=== PATIENT | male | born 1975 | race African-American/Black ===

== ENCOUNTER 2016-08-16 23:18 | Emergency (ER) | payer MEDICARE ==
[~2016-08-16] VITALS: Ht 172.7 cm; Wt 82.0 kg
[~2016-08-16 23:18] MED LIST: ACETAMIN325 MG PO; ACIPHEX20 MG PO; AMLODIPINE10 MG PO; APRESOLINE25 MG/TAB PO; BENTYL10 MG PO; CHLORASEPTIC SO1 LOZ PO; CIPROFLOXACN500 MG PO; CLONIDINE0.1 MG PO; CLONIDINE0.2 MG; CLONIDINE0.2 MG OR; CLONIDINE0.2 MG PO; DOXAZOSIN4 MG PO; DULCOLAX SS100 MG PO; GLIPIZIDE10 M1; GLIPIZIDE10 M1 PO; GLIPIZIDE5 M1 PO; HUMALOG100 MG/ML SC; HYDRALAZINE25 MG PO; LASIX40 MG PO; LEVEMIR FLEXPEN SC; LEVEMIR SC; LEVEMIR1000 UNITS SC; LISINOPRIL10 MG; LISINOPRIL10 MG PO; LISINOPRIL20 MG; LISINOPRIL20 MG OR; LISINOPRIL20 MG PO; LISINOPRIL40 MG PO; LOPRESSOR 550 MG/TAB PO; LOPRESSOR50 MG PO; LORTAB 10-325 M1 TAB PO; LORTAB5 OR; LORTAB5 PO; LOSARTAN POT100 MG PO; LOSARTAN POT50 MG PO; METOCLOPRAM10 MG; METOCLOPRAM5 MG PO; METRONIDAZOL500 MG PO; MINOCYCLINE100 MG OR; NEXIUM40 M1 PO; NO HOME MEDS; NORCO1 TA1 PO; NORVASC10 M1 PO; NORVASC2.5 MG PO; NOVOLIN 70/30 SC; NOVOLOG FLEXPEN SC; NOVOLOG SC; OMEPRAZOLE20 MG PO; ONDANSETRON4 MG; ONDANSETRON4 MG PO; PANTOPRAZOLE SO40 M1 PO; PEPCID20 MG PO; PHENERGAN25 MG/TAB PO; PRAVASTATIN10 MG PO; PRAVASTATIN20 MG PO; PRILOSEC40 MG OR; PROCARDIA XL60 MG PO; PROCARDIA10 MG PO; PROMETHAZINE HC25 MG PO; PROMETHAZINE25 MG OR; PROTONIX40 MG PO; ULTRAM50 M1 PO; ZOFRAN ODT4 MG OR; ZOFRAN ODT4 MG PO; ZOFRAN2 MG/M1 IV; ZOFRAN4 M1 OR; ZOFRAN4 MG OR; ZOFRAN4 MG/TAB PO; [UNRECOGNIZED DRUG - REMARK] SC
[2016-08-17 03:46] LABS: HEMATOCRIT 38.3 % (39.0-50.0); HEMOGLOBIN 12.5 g/dl (14.0-18.0); IMMATURE GRANULOCYTES 0.4 % (0.0-1.0); MEAN CELL VOLUME 90.8 fL CALC (80.0-100.0); MEAN CORPUSCULAR HGB 29.6 pG CALC (26.0-32.0); MEAN CORPUSCULAR HGB CONC 32.6 g/L CALC (32.0-36.0); NEUT# 9.54 thou/uL (1.82-7.42); RED BLOOD COUNT 4.22 mill/uL (4.70-6.10); RED CELL DISTRI WIDTH 15.5 % (11.5-15.5)
[2016-08-17 04:14] LABS: ALBUMIN 4.6 g/dL (3.2-5.0); BILIRUBIN, TOTAL 0.6 mg/dL (0.0-1.4); CALCIUM 9.9 mg/dL (8.4-10.2); TOTAL PROTEIN 7.8 g/dL (6.3-8.2)
[2016-08-17 04:52] LABS: CREATININE 13.8 mg/dL (0.7-1.3); POTASSIUM 5.2 mmol/l (3.5-5.1)
[2016-08-17] MEDS ORDERED: CATAPRES0.2 MG PO (07:00)
[2016-08-17 07:14] VITALS: BP 171/89
== END 2016-08-17 06:59 | disposition left against medical advice (07) ==
LOC: ED 23:18
PROVIDERS: Emergency Medicine
DX: I16.1 Hypertensive emergency (principal); I12.0 Hypertensive chronic kidney disease with stage 5 chronic kidney disease or end stage renal disease; E11.22 Type 2 diabetes mellitus with diabetic chronic kidney disease; E11.43 Type 2 diabetes mellitus with diabetic autonomic (poly)neuropathy; K31.84 Gastroparesis; N18.6 End stage renal disease; E66.01 Morbid (severe) obesity due to excess calories; M19.90 Unspecified osteoarthritis, unspecified site; K21.9 Gastro-esophageal reflux disease without esophagitis; R11.10 Vomiting, unspecified; R10.13 Epigastric pain; Z99.2 Dependence on renal dialysis
CPT/HCPCS: S0164

== ENCOUNTER 2016-11-14 04:06 | Emergency (ER) | payer MEDICARE, MEDICAID ==
[~2016-11-14] VITALS: Ht 172.7 cm; Wt 100.0 kg
[~2016-11-14 04:06] MED LIST changes: +CATAPRES0.2 MG PO
[2016-11-14 05:01] LABS: HEMATOCRIT 33.8 % (39.0-50.0); HEMOGLOBIN 10.7 g/dl (14.0-18.0); IMMATURE GRANULOCYTES 0.3 % (0.0-1.0); MEAN CELL VOLUME 96.3 fL CALC (80.0-100.0); MEAN CORPUSCULAR HGB 30.5 pG CALC (26.0-32.0); MEAN CORPUSCULAR HGB CONC 31.7 g/L CALC (32.0-36.0); NEUT# 6.07 thou/uL (1.82-7.42); RED BLOOD COUNT 3.51 mill/uL (4.70-6.10); RED CELL DISTRI WIDTH 15.5 % (11.5-15.5)
[2016-11-14 05:10] LABS: ALBUMIN 4.4 g/dL (3.2-5.0); BILIRUBIN, TOTAL 0.7 mg/dL (0.0-1.4); POTASSIUM 4.6 mmol/l (3.5-5.1); TOTAL PROTEIN 7.2 g/dL (6.3-8.2)
[2016-11-14 05:19] LABS: CREATININE 10.7 mg/dL (0.7-1.3)
[2016-11-14 06:17] VITALS: BP 189/97
== END 2016-11-14 06:17 | disposition home or self-care (01) ==
LOC: ED 04:06
PROVIDERS: Emergency Medicine
DX: E87.70 Fluid overload, unspecified (principal); I12.0 Hypertensive chronic kidney disease with stage 5 chronic kidney disease or end stage renal disease; N18.6 End stage renal disease; Z99.2 Dependence on renal dialysis; R06.02 Shortness of breath; R94.31 Abnormal electrocardiogram [ECG] [EKG]

== ENCOUNTER 2016-12-31 20:45 | Emergency (ER) | payer MEDICARE, MEDICAID ==
[~2016-12-31] VITALS: Ht 172.7 cm; Wt 80.0 kg
[2016-12-31 22:13] LABS: ALBUMIN 4.4 g/dL (3.2-5.0); BILIRUBIN, TOTAL 0.9 mg/dL (0.0-1.4); POTASSIUM 3.8 mmol/l (3.5-5.1); TOTAL PROTEIN 6.7 g/dL (6.3-8.2)
[2016-12-31 22:15] LABS: CREATININE 6.8 mg/dL (0.7-1.3)
[2016-12-31 22:24] LABS: HEMATOCRIT 36.3 % (39.0-50.0); HEMOGLOBIN 11.7 g/dl (14.0-18.0); IMMATURE GRANULOCYTES 0.4 % (0.0-1.0); MEAN CELL VOLUME 92.8 fL CALC (80.0-100.0); MEAN CORPUSCULAR HGB 29.9 pG CALC (26.0-32.0); MEAN CORPUSCULAR HGB CONC 32.2 g/L CALC (32.0-36.0); NEUT# 6.65 thou/uL (1.82-7.42); RED BLOOD COUNT 3.91 mill/uL (4.70-6.10); RED CELL DISTRI WIDTH 14.4 % (11.5-15.5)
[2017-01-01] MEDS ORDERED: ZOFRAN ODT4 MG PO (01:42)
[2017-01-01] MEDS ORDERED: PREVACID30 M2 PO (01:42)
[2017-01-01 01:46] VITALS: BP 175/90
== END 2017-01-01 01:55 | disposition home or self-care (01) ==
LOC: ED 20:45
PROVIDERS: Emergency Medicine
DX: R11.2 Nausea with vomiting, unspecified (principal); N18.6 End stage renal disease; E11.22 Type 2 diabetes mellitus with diabetic chronic kidney disease; K31.84 Gastroparesis; E11.43 Type 2 diabetes mellitus with diabetic autonomic (poly)neuropathy; I12.0 Hypertensive chronic kidney disease with stage 5 chronic kidney disease or end stage renal disease; E66.01 Morbid (severe) obesity due to excess calories; M19.90 Unspecified osteoarthritis, unspecified site; K21.9 Gastro-esophageal reflux disease without esophagitis; Z99.2 Dependence on renal dialysis
CPT/HCPCS: S0164

== ENCOUNTER 2017-02-13 10:08 | Emergency (ER) | payer MEDICARE ==
[~2017-02-13] VITALS: Ht 172.7 cm; Wt 79.5 kg
[~2017-02-13 10:08] MED LIST changes: +PREVACID30 M2 PO
[2017-02-13 11:09] LABS: HEMATOCRIT 35.5 % (39.0-50.0); HEMOGLOBIN 11.5 g/dl (14.0-18.0); IMMATURE GRANULOCYTES 0.4 % (0.0-1.0); MEAN CELL VOLUME 89.9 fL CALC (80.0-100.0); MEAN CORPUSCULAR HGB 29.1 pG CALC (26.0-32.0); MEAN CORPUSCULAR HGB CONC 32.4 g/L CALC (32.0-36.0); NEUT# 6.59 thou/uL (1.82-7.42); RED BLOOD COUNT 3.95 mill/uL (4.70-6.10); RED CELL DISTRI WIDTH 15.5 % (11.5-15.5)
[2017-02-13 11:17] LABS: ALBUMIN 4.2 g/dL (3.2-5.0); BILIRUBIN, TOTAL 1.1 mg/dL (0.0-1.4); CALCIUM 9.7 mg/dL (8.4-10.2); POTASSIUM 3.1 mmol/l (3.5-5.1)
[2017-02-13] MEDS ORDERED: FAMOTIDINE20 M1 PO (11:18)
[2017-02-13] MEDS ORDERED: PANTOPRAZOLE SO40 MG PO (11:19)
[2017-02-13 11:27] LABS: CREATININE 7.8 mg/dL (0.7-1.3)
[2017-02-13] MEDS ORDERED: PROTONIX40 MG PO (16:59)
[2017-02-13] MEDS ORDERED: REGLAN10 MG PO (16:59)
[2017-02-13] MEDS ORDERED: ZOFRAN4 MG/TAB PO (16:59)
[2017-02-13 17:03] VITALS: BP 180/93
== END 2017-02-13 17:16 | disposition home or self-care (01) ==
LOC: ED 10:08
PROVIDERS: Emergency Medicine
DX: R10.13 Epigastric pain (principal); E11.43 Type 2 diabetes mellitus with diabetic autonomic (poly)neuropathy; K31.84 Gastroparesis; I12.0 Hypertensive chronic kidney disease with stage 5 chronic kidney disease or end stage renal disease; E11.22 Type 2 diabetes mellitus with diabetic chronic kidney disease; N18.6 End stage renal disease; Z99.2 Dependence on renal dialysis; E66.01 Morbid (severe) obesity due to excess calories; M19.90 Unspecified osteoarthritis, unspecified site; K21.9 Gastro-esophageal reflux disease without esophagitis; E11.65 Type 2 diabetes mellitus with hyperglycemia

== ENCOUNTER 2017-03-08 19:45 | Emergency (ER) | payer MEDICARE ==
[~2017-03-08] VITALS: Ht 172.7 cm; Wt 73.0 kg
[~2017-03-08 19:45] MED LIST changes: +FAMOTIDINE20 M1 PO; +PANTOPRAZOLE SO40 MG PO; +REGLAN10 MG PO
[2017-03-08 20:54] LABS: HEMATOCRIT 40.9 % (39.0-50.0); HEMOGLOBIN 12.6 g/dl (14.0-18.0); IMMATURE GRANULOCYTES 0.4 % (0.0-1.0); MEAN CELL VOLUME 91.9 fL CALC (80.0-100.0); MEAN CORPUSCULAR HGB 28.3 pG CALC (26.0-32.0); MEAN CORPUSCULAR HGB CONC 30.8 g/L CALC (32.0-36.0); NEUT# 7.45 thou/uL (1.82-7.42); RED BLOOD COUNT 4.45 mill/uL (4.70-6.10); RED CELL DISTRI WIDTH 15.9 % (11.5-15.5)
[2017-03-08 21:17] LABS: ALBUMIN 4.5 g/dL (3.2-5.0); BILIRUBIN, TOTAL 0.8 mg/dL (0.0-1.4); CALCIUM 9.9 mg/dL (8.4-10.2); POTASSIUM 4.2 mmol/l (3.5-5.1); TOTAL PROTEIN 6.9 g/dL (6.3-8.2)
[2017-03-08 21:21] LABS: CREATININE 6.8 mg/dL (0.7-1.3)
[2017-03-09] MEDS ORDERED: ZPAK PO ×3 (01:09→01:30)
[2017-03-09] MEDS ORDERED: ZOFRAN ODT4 MG PO ×2 (01:09→01:28)
[2017-03-09 01:20] VITALS: BP 196/103
== END 2017-03-09 01:20 | disposition home or self-care (01) ==
LOC: ED 19:45
PROVIDERS: Emergency Medicine
DX: I12.0 Hypertensive chronic kidney disease with stage 5 chronic kidney disease or end stage renal disease (principal); N18.6 End stage renal disease; Z99.2 Dependence on renal dialysis; R10.84 Generalized abdominal pain; R11.2 Nausea with vomiting, unspecified; K31.84 Gastroparesis

== ENCOUNTER 2017-04-05 16:26 | Emergency (ER) | payer MEDICARE ==
[~2017-04-05] VITALS: Ht 172.7 cm; Wt 74.0 kg
[~2017-04-05 16:26] MED LIST changes: +ZPAK PO
[2017-04-05 17:50] LABS: HEMATOCRIT 42.1 % (39.0-50.0); HEMOGLOBIN 12.8 g/dl (14.0-18.0); IMMATURE GRANULOCYTES 0.3 % (0.0-1.0); MEAN CELL VOLUME 92.1 fL CALC (80.0-100.0); MEAN CORPUSCULAR HGB CONC 30.4 g/L CALC (32.0-36.0); NEUT# 7.86 thou/uL (1.82-7.42); RED BLOOD COUNT 4.57 mill/uL (4.70-6.10); RED CELL DISTRI WIDTH 16.2 % (11.5-15.5)
[2017-04-05 18:04] LABS: ALBUMIN 4.2 g/dL (3.2-5.0); CALCIUM 10.1 mg/dL (8.4-10.2); TOTAL PROTEIN 6.8 g/dL (6.3-8.2)
[2017-04-05 18:17] LABS: CREATININE 7.1 mg/dL (0.7-1.3)
[2017-04-05] MEDS ORDERED: ZOFRAN ODT4 MG PO (19:57)
[2017-04-05] MEDS ORDERED: ULTRAM50 M1 PO (19:57)
[2017-04-05 20:54] VITALS: BP 178/82
== END 2017-04-05 21:00 | disposition home or self-care (01) ==
LOC: ED 16:26
PROVIDERS: Family Medicine
DX: R10.84 Generalized abdominal pain (principal); R11.2 Nausea with vomiting, unspecified; I12.0 Hypertensive chronic kidney disease with stage 5 chronic kidney disease or end stage renal disease; E11.22 Type 2 diabetes mellitus with diabetic chronic kidney disease; N18.6 End stage renal disease; Z99.2 Dependence on renal dialysis; E11.43 Type 2 diabetes mellitus with diabetic autonomic (poly)neuropathy; K31.84 Gastroparesis; E66.01 Morbid (severe) obesity due to excess calories; K21.9 Gastro-esophageal reflux disease without esophagitis; M19.90 Unspecified osteoarthritis, unspecified site

== ENCOUNTER 2017-04-14 01:22 | Emergency (ER) | payer MEDICARE ==
[~2017-04-14] VITALS: Ht 172.7 cm; Wt 63.6 kg
[2017-04-14 02:24] LABS: HEMATOCRIT 39.6 % (39.0-50.0); HEMOGLOBIN 12.8 g/dl (14.0-18.0); IMMATURE GRANULOCYTES 0.5 % (0.0-1.0); MEAN CELL VOLUME 88.2 fL CALC (80.0-100.0); MEAN CORPUSCULAR HGB 28.5 pG CALC (26.0-32.0); MEAN CORPUSCULAR HGB CONC 32.3 g/L CALC (32.0-36.0); NEUT# 8.35 thou/uL (1.82-7.42); RED BLOOD COUNT 4.49 mill/uL (4.70-6.10); RED CELL DISTRI WIDTH 16.1 % (11.5-15.5)
[2017-04-14 02:41] LABS: ALBUMIN 4.6 g/dL (3.2-5.0); CALCIUM 10.5 mg/dL (8.4-10.2); POTASSIUM 4.6 mmol/l (3.5-5.1)
[2017-04-14 02:55] LABS: CREATININE 13.6 mg/dL (0.7-1.3)
[2017-04-14 05:18] VITALS: BP 199/99
== END 2017-04-14 05:18 | disposition short-term general hospital (02) ==
LOC: ED 01:22
PROVIDERS: Emergency Medicine
DX: R10.13 Epigastric pain (principal); I16.1 Hypertensive emergency; R94.8 Abnormal results of function studies of other organs and systems; E11.22 Type 2 diabetes mellitus with diabetic chronic kidney disease; I12.0 Hypertensive chronic kidney disease with stage 5 chronic kidney disease or end stage renal disease; N18.6 End stage renal disease; Z99.2 Dependence on renal dialysis; E11.43 Type 2 diabetes mellitus with diabetic autonomic (poly)neuropathy; K31.84 Gastroparesis; E66.01 Morbid (severe) obesity due to excess calories; K21.9 Gastro-esophageal reflux disease without esophagitis; M19.90 Unspecified osteoarthritis, unspecified site; R94.31 Abnormal electrocardiogram [ECG] [EKG]

== ENCOUNTER 2017-06-07 16:47 | Emergency (ER) | payer MEDICARE ==
[~2017-06-07] VITALS: Ht 172.7 cm; Wt 74.4 kg
[2017-06-07 17:48] LABS: HEMATOCRIT 32.9 % (39.0-50.0); HEMOGLOBIN 10.4 g/dl (14.0-18.0); IMMATURE GRANULOCYTES 0.3 % (0.0-1.0); MEAN CELL VOLUME 90.9 fL CALC (80.0-100.0); MEAN CORPUSCULAR HGB 28.7 pG CALC (26.0-32.0); MEAN CORPUSCULAR HGB CONC 31.6 g/L CALC (32.0-36.0); NEUT# 11.14 thou/uL (1.82-7.42); RED BLOOD COUNT 3.62 mill/uL (4.70-6.10); RED CELL DISTRI WIDTH 17.4 % (11.5-15.5)
[2017-06-07 18:25] LABS: ALBUMIN 4.5 g/dL (3.2-5.0); BILIRUBIN, TOTAL 0.7 mg/dL (0.0-1.4); CALCIUM 10.6 mg/dL (8.4-10.2); TOTAL PROTEIN 6.8 g/dL (6.3-8.2)
[2017-06-07 18:43] LABS: CREATININE 8.4 mg/dL (0.7-1.3)
[2017-06-07 20:58] VITALS: BP 192/93
== END 2017-06-07 20:45 | disposition home or self-care (01) ==
LOC: ED 16:47
PROVIDERS: Family Medicine
DX: R10.84 Generalized abdominal pain (principal); I12.0 Hypertensive chronic kidney disease with stage 5 chronic kidney disease or end stage renal disease; N18.6 End stage renal disease; Z99.2 Dependence on renal dialysis

== ENCOUNTER 2017-06-22 10:33 | Emergency (ER) | payer MEDICARE ==
[~2017-06-22] VITALS: Ht 172.7 cm; Wt 74.0 kg
[2017-06-22 11:55] LABS: HEMATOCRIT 34.8 % (39.0-50.0); IMMATURE GRANULOCYTES 0.2 % (0.0-1.0); MEAN CELL VOLUME 91.6 fL CALC (80.0-100.0); MEAN CORPUSCULAR HGB 28.9 pG CALC (26.0-32.0); MEAN CORPUSCULAR HGB CONC 31.6 g/L CALC (32.0-36.0); NEUT# 6.95 thou/uL (1.82-7.42); RED BLOOD COUNT 3.8 mill/uL (4.70-6.10); RED CELL DISTRI WIDTH 16.5 % (11.5-15.5)
[2017-06-22 12:01] LABS: ALBUMIN 4.5 g/dL (3.2-5.0); BILIRUBIN, TOTAL 0.7 mg/dL (0.0-1.4); CALCIUM 11.1 mg/dL (8.4-10.2); POTASSIUM 4.6 mmol/l (3.5-5.1); TOTAL PROTEIN 6.7 g/dL (6.3-8.2)
[2017-06-22] MEDS ORDERED: LOSARTAN POT25 MG PO (12:07)
[2017-06-22] MEDS ORDERED: LABETALOL100 MG PO (12:07)
[2017-06-22] MEDS ORDERED: ONDANSETRON4 MG PO (16:02)
[2017-06-22] MEDS ORDERED: NORCO1 TA1 PO (16:02)
[2017-06-22] MEDS ORDERED: CLONIDINE0.2 MG PO (16:02)
[2017-06-22 16:17] VITALS: BP 199/103
== END 2017-06-22 16:17 | disposition home or self-care (01) ==
LOC: ED 10:33
PROVIDERS: Emergency Medicine
DX: G89.29 Other chronic pain (principal); R10.11 Right upper quadrant pain; F11.20 Opioid dependence, uncomplicated; Z99.2 Dependence on renal dialysis; N18.6 End stage renal disease; K31.84 Gastroparesis

== ENCOUNTER 2017-07-17 03:43 | Emergency (ER) | payer MEDICARE ==
[~2017-07-17] VITALS: Ht 172.7 cm; Wt 77.4 kg
[~2017-07-17 03:43] MED LIST changes: +LABETALOL100 MG PO; +LOSARTAN POT25 MG PO
[2017-07-17 05:10] LABS: HEMATOCRIT 29.6 % (39.0-50.0); HEMOGLOBIN 9.4 g/dl (14.0-18.0); IMMATURE GRANULOCYTES 0.3 % (0.0-1.0); MEAN CELL VOLUME 93.7 fL CALC (80.0-100.0); MEAN CORPUSCULAR HGB 29.7 pG CALC (26.0-32.0); MEAN CORPUSCULAR HGB CONC 31.8 g/L CALC (32.0-36.0); NEUT# 9.17 thou/uL (1.82-7.42); RED BLOOD COUNT 3.16 mill/uL (4.70-6.10); RED CELL DISTRI WIDTH 15.9 % (11.5-15.5)
[2017-07-17 05:22] LABS: ALBUMIN 4.6 g/dL (3.2-5.0); BILIRUBIN, TOTAL 0.7 mg/dL (0.0-1.4); POTASSIUM 4.8 mmol/l (3.5-5.1); TOTAL PROTEIN 6.8 g/dL (6.3-8.2)
[2017-07-17 06:05] VITALS: BP 199/96
== END 2017-07-17 06:15 | disposition home or self-care (01) ==
LOC: ED 03:43
PROVIDERS: Emergency Medicine
DX: R10.33 Periumbilical pain (principal); R11.2 Nausea with vomiting, unspecified; I12.0 Hypertensive chronic kidney disease with stage 5 chronic kidney disease or end stage renal disease; N18.6 End stage renal disease; Z99.2 Dependence on renal dialysis

== ENCOUNTER 2017-09-10 04:05 | Emergency (ER) | payer MEDICARE ==
[~2017-09-10] VITALS: Ht 172.7 cm; Wt 74.4 kg
[~2017-09-10 04:05] MED LIST changes: +CREON3000 UNIT PO; +LINZESS290 MCG; +METOCLOPRAMIDE10 M1; +PRAMIPEXOLE D0.25 MG PO; +RENVELA800 MG PO; +SENSIPAR30 MG PO
[2017-09-10 05:47] LABS: HEMATOCRIT 34.8 % (39.0-50.0); IMMATURE GRANULOCYTES 0.5 % (0.0-1.0); MEAN CELL VOLUME 92.6 fL CALC (80.0-100.0); MEAN CORPUSCULAR HGB 30.6 pG CALC (26.0-32.0); NEUT# 8.81 thou/uL (1.82-7.42); RED BLOOD COUNT 3.76 mill/uL (4.70-6.10); RED CELL DISTRI WIDTH 15.1 % (11.5-15.5)
[2017-09-10 05:48] LABS: HEMOGLOBIN 11.5 g/dl (14.0-18.0)
[2017-09-10 05:57] LABS: ALBUMIN 4.4 g/dL (3.2-5.0); BILIRUBIN, TOTAL 0.7 mg/dL (0.0-1.4); TOTAL PROTEIN 7.4 g/dL (6.3-8.2)
[2017-09-10 05:59] LABS: CREATININE 8.7 mg/dL (0.7-1.3); POTASSIUM 5.2 mmol/l (3.5-5.1)
[2017-09-10] MEDS ORDERED: ULTRAM50 M1 PO (06:48)
[2017-09-10] MEDS ORDERED: ZOFRAN ODT4 MG PO (06:48)
[2017-09-10 06:55] VITALS: BP 182/92
== END 2017-09-10 07:05 | disposition home or self-care (01) ==
LOC: ED 04:05
PROVIDERS: Emergency Medicine
DX: R10.33 Periumbilical pain (principal); I12.0 Hypertensive chronic kidney disease with stage 5 chronic kidney disease or end stage renal disease; N18.6 End stage renal disease; Z99.2 Dependence on renal dialysis

== ENCOUNTER 2017-11-09 23:40 | Emergency (ER) | payer MEDICARE ==
[~2017-11-09] VITALS: Ht 172.7 cm; Wt 78.0 kg
[2017-11-10 00:32] LABS: HEMATOCRIT 30.5 % (39.0-50.0); HEMOGLOBIN 9.6 g/dl (14.0-18.0); IMMATURE GRANULOCYTES 0.4 % (0.0-1.0); MEAN CORPUSCULAR HGB 29.3 pG CALC (26.0-32.0); MEAN CORPUSCULAR HGB CONC 31.5 g/L CALC (32.0-36.0); NEUT# 7.06 thou/uL (1.82-7.42); RED BLOOD COUNT 3.28 mill/uL (4.70-6.10); RED CELL DISTRI WIDTH 15.9 % (11.5-15.5)
[2017-11-10 00:55] LABS: ALBUMIN 4.4 g/dL (3.2-5.0); BILIRUBIN, TOTAL 0.6 mg/dL (0.0-1.4); TOTAL PROTEIN 7.4 g/dL (6.3-8.2)
[2017-11-10 01:02] LABS: CREATININE 9.1 mg/dL (0.7-1.3); POTASSIUM 5.8 mmol/l (3.5-5.1)
[2017-11-10 05:17] VITALS: BP 206/110
== END 2017-11-10 05:22 | disposition short-term general hospital (02) ==
LOC: ED 23:40
PROVIDERS: Emergency Medicine
DX: K85.90 Acute pancreatitis without necrosis or infection, unspecified (principal); N18.6 End stage renal disease; Z99.2 Dependence on renal dialysis; I16.0 Hypertensive urgency; E87.5 Hyperkalemia; R89.7 Abnormal histological findings in specimens from other organs, systems and tissues; R94.31 Abnormal electrocardiogram [ECG] [EKG]; Z96.89 Presence of other specified functional implants
CPT/HCPCS: S0164

== ENCOUNTER 2017-12-07 01:06 | Emergency (ER) | payer MEDICARE ==
[~2017-12-07] VITALS: Ht 172.7 cm; Wt 74.8 kg
[2017-12-07 02:06] LABS: HEMATOCRIT 35.2 % (39.0-50.0); HEMOGLOBIN 10.9 g/dl (14.0-18.0); IMMATURE GRANULOCYTES 0.3 % (0.0-1.0); MEAN CELL VOLUME 95.7 fL CALC (80.0-100.0); MEAN CORPUSCULAR HGB 29.6 pG CALC (26.0-32.0); NEUT# 8.16 thou/uL (1.82-7.42); RED BLOOD COUNT 3.68 mill/uL (4.70-6.10); RED CELL DISTRI WIDTH 16.4 % (11.5-15.5)
[2017-12-07 02:25] LABS: ALBUMIN 5.2 g/dL (3.2-5.0); BILIRUBIN, TOTAL 0.8 mg/dL (0.0-1.4); POTASSIUM 5.1 mmol/l (3.5-5.1)
[2017-12-07 02:27] LABS: CREATININE 7.7 mg/dL (0.7-1.3); TOTAL PROTEIN 8.9 g/dL (6.3-8.2)
[2017-12-07 10:24] VITALS: BP 237/127
== END 2017-12-07 10:24 | disposition short-term general hospital (02) ==
LOC: ED 01:06
PROVIDERS: Emergency Medicine
DX: K85.90 Acute pancreatitis without necrosis or infection, unspecified (principal); I16.0 Hypertensive urgency; I12.0 Hypertensive chronic kidney disease with stage 5 chronic kidney disease or end stage renal disease; K31.84 Gastroparesis; N18.6 End stage renal disease; Z99.2 Dependence on renal dialysis; R00.0 Tachycardia, unspecified

== ENCOUNTER 2017-12-14 08:35 | Emergency (ER) | payer MEDICARE ==
[~2017-12-14] VITALS: Ht 172.7 cm; Wt 74.0 kg
[2017-12-14 09:39] LABS: HEMATOCRIT 30.6 % (39.0-50.0); HEMOGLOBIN 9.6 g/dl (14.0-18.0); IMMATURE GRANULOCYTES 0.3 % (0.0-5.0); MEAN CELL VOLUME 94.7 fL CALC (80.0-100.0); MEAN CORPUSCULAR HGB 29.7 pG CALC (26.0-32.0); MEAN CORPUSCULAR HGB CONC 31.4 g/L CALC (32.0-36.0); NEUT# 9.38 thou/uL (1.82-7.42); RED BLOOD COUNT 3.23 mill/uL (4.70-6.10); RED CELL DISTRI WIDTH 15.1 % (11.5-15.5)
[2017-12-14 09:59] LABS: ALBUMIN 4.4 g/dL (3.2-5.0); BILIRUBIN, TOTAL 0.8 mg/dL (0.0-1.4); POTASSIUM 4.7 mmol/l (3.5-5.1)
[2017-12-14 10:01] LABS: CREATININE 8.1 mg/dL (0.7-1.3); TOTAL PROTEIN 7.1 g/dL (6.3-8.2)
[2017-12-14 11:45] VITALS: BP 188/92
== END 2017-12-14 11:45 | disposition short-term general hospital (02) ==
LOC: ED 08:35
PROVIDERS: Emergency Medicine
DX: K85.90 Acute pancreatitis without necrosis or infection, unspecified (principal); I12.0 Hypertensive chronic kidney disease with stage 5 chronic kidney disease or end stage renal disease; N18.6 End stage renal disease; Z99.2 Dependence on renal dialysis; R11.2 Nausea with vomiting, unspecified; R10.11 Right upper quadrant pain
CPT/HCPCS: S0164

== ENCOUNTER 2018-01-04 18:55 | Emergency (ER) | payer MEDICARE ==
[~2018-01-04] VITALS: Ht 172.7 cm; Wt 75.0 kg
[2018-01-04 20:28] LABS: HEMATOCRIT 29.4 % (39.0-50.0); HEMOGLOBIN 9.4 g/dl (14.0-18.0); IMMATURE GRANULOCYTES 0.4 % (0.0-5.0); MEAN CELL VOLUME 92.2 fL CALC (80.0-100.0); MEAN CORPUSCULAR HGB 29.5 pG CALC (26.0-32.0); NEUT# 9.53 thou/uL (1.82-7.42); RED BLOOD COUNT 3.19 mill/uL (4.70-6.10); RED CELL DISTRI WIDTH 16.3 % (11.5-15.5)
[2018-01-04 20:35] LABS: ALBUMIN 4.5 g/dL (3.2-5.0); BILIRUBIN, TOTAL 0.7 mg/dL (0.0-1.4); TOTAL PROTEIN 7.5 g/dL (6.3-8.2)
[2018-01-04 20:43] LABS: CREATININE 9.6 mg/dL (0.7-1.3)
[2018-01-05 01:03] VITALS: BP 189/90
== END 2018-01-05 01:06 | disposition short-term general hospital (02) ==
LOC: ED 18:55
PROVIDERS: Emergency Medicine
DX: I16.1 Hypertensive emergency (principal); I12.0 Hypertensive chronic kidney disease with stage 5 chronic kidney disease or end stage renal disease; N18.6 End stage renal disease; R10.12 Left upper quadrant pain; R10.11 Right upper quadrant pain; K86.1 Other chronic pancreatitis; Z99.2 Dependence on renal dialysis

== ENCOUNTER 2018-02-05 13:40 | Inpatient (IN) | payer MEDICARE ==
[2018-02-05] VITALS (9 sets, daily range): BP systolic 153–203; BP diastolic 77–98
[~2018-02-05] VITALS: Ht 172.7 cm; Wt 74.0 kg
--- NOTE | 2018-02-05 13:45 | NUR ---
PT AMBULATES TO TX ROOM WITH STABLE GAIT. REPORTS VOMITING X 6 TODAY SINCE DIALYSIS.
--- NOTE | 2018-02-05 14:46 | NUR ---
SEVERAL IV ATTEMPTS UNSUCCESFUL, LIJ ESTABLSHED AND LABS OBTAINED. PT MEDICATED ORDERED.
[2018-02-05 14:58] LABS: HEMATOCRIT 33.1 % (39.0-50.0); HEMOGLOBIN 10.5 g/dl (14.0-18.0); IMMATURE GRANULOCYTES 0.2 % (0.0-5.0); MEAN CELL VOLUME 93.2 fL CALC (80.0-100.0); MEAN CORPUSCULAR HGB 29.6 pG CALC (26.0-32.0); MEAN CORPUSCULAR HGB CONC 31.7 g/L CALC (32.0-36.0); NEUT# 9.15 thou/uL (1.82-7.42); RED BLOOD COUNT 3.55 mill/uL (4.70-6.10); RED CELL DISTRI WIDTH 16.7 % (11.5-15.5)
--- NOTE | 2018-02-05 15:01 | NUR ---
DR MERLOS AT BEDSIDE FOR EVAL
[2018-02-05 15:15] LABS: ALBUMIN 4.8 g/dL (3.2-5.0); TOTAL PROTEIN 7.8 g/dL (6.3-8.2)
[2018-02-05 15:22] LABS: CREATININE 8.1 mg/dL (0.7-1.3); POTASSIUM 5.4 mmol/l (3.5-5.1)
--- NOTE | 2018-02-05 15:54 | NUR ---
PT CONTINUES TO BE HYPERTENSIVE AFTER LEBETALOL IVP. DR MERLOS ADVISED, ORDER RECEIVED FOR HYDRALAZINE IVP.
--- NOTE | 2018-02-05 16:00 | NUR ---
PT RESTING ON STRETCHER, SNORING BUT EASILY AROUSEABLE. PT STATES PAIN IS 1/10.
--- NOTE | 2018-02-05 16:13 | NUR ---
DR MERLOS AT BEDSIDE TO DISCUSS RESULTS AND PLAN
--- NOTE | 2018-02-05 16:27 | NUR ---
NICARDIPINE GTT INITIATED ORDERED, RBVO DR MERLSO. INFUSING AT 5MG/HR FOR [facility] BP 180/[address] MERLOS
--- NOTE | 2018-02-05 17:15 | NUR ---
BP DOCUMENTED, CARDENE CONTINUES AT 5MG/HR. PT STATES PAIN IS STARTING TO INCREASE AGAIN, DR MERLOS ADVISED.
--- NOTE | 2018-02-05 17:44 | NUR ---
REPORT TO DIONNE REYNAGA. PT MEDICATED ORDERED FOR PAIN.
--- NOTE | 2018-02-05 17:50 | NUR ---
PT ARRIVED TO ICU, BED 6, BY STRETCHER WITH TELE & IV CARDENE. PT ABLE TO STAND TO TRANSFER FROM STRETCHER TO BED. PT STATES TOOK HOME HIS BELONGINGS FROM ED.
--- NOTE | 2018-02-05 18:06 | NUR ---
PT UNABLE TO STAY AWAKE TO ANSWER ADMISSION QUESTIONS. DR HODGES NOTIFIED. VERBAL ORDER TO "WAIT IT OUT" DUE TO PTS HYPERTENSION. STERNAL RUB NEEDED TO WAKE PT UP.
--- NOTE | 2018-02-05 18:34 | NUR ---
PT C/O 01/02 MID/UPPER ABD PAIN WITH N/V x10 SINCE DIALYSIS STARTED TODAY. PT STATES HE DID NOT COMPLETE DIALYSIS TODAY DUE TO ABD PAIN & N/V. DESCRIBES PAIN "CRAMPING". PT ADMITS TO SMOKING RECREATIONAL MARIJUANA. PT DOES NOT KNOW HIS HOME MEDICATIONS. CONSULT PLACED WITH PHARMACY. PT ARRIVED ON CARDENE DRIP AT 5MG/HR STARTED AT 1625- ER DR SET TARGET PARAMETER OF 180/110. PT ONLY AWAKEN BY STERNAL RUB. BED ALARM SET. EYES SLUGGISH @2. PULSES STRONG, POOR CAP REFILL. BREATHING EVEN/UNLABORED, LUNG SOUNDS CLEAR. ABD SOFT/TENDER, ACTIVE BS. SCD'S PLACED ON PT. PT STATES HE PRODUCES A LITTLE URINE, DENIES PAIN WITH URINATION. PT ON FALL PRECAUTIONS, CALLBELL W/IN REACH. MAG CITRATE ORDERS BUT WILL HOLD FOR PM NURSE AFTER PT IS MORE AWAKE.
--- NOTE | 2018-02-05 19:20 | NUR ---
PT IN BED WITH EYES CLOSED, RESPONDS TO VERBAL STIMULI. ALERT TO SELF AND , HAS TO BE ORIENTED TO DATE. CARDENE GTT TO LEFT EJ AT 5MG/HR. B/P 213/100, HR 108. ENCOURAGED TO DRINK MAG CITRATE PER ORDERS, DRINKING ABOUT 50%, WILL CONTINUE TO ENCOURAGE TO DRINK MORE. C/O ABDOMINAL PAIN WAS MEDICATED WITH DILAUDID 2MG IV AT 1742, DISCUSED WITH PT DILAUDID AVAILABLE TO HIM PER DR'S ORDER EVERY 4HRS, PT VOICES UNDERSTANDING. STONG THRILL TO TWO FISTULAS IN LEFT ARM. SCD'S TO BILAT LOWER EXTREMITIES. BED ALARM APPLIED DUE TO PT BEING IMPULSIVE. CALL LIGHT IN REACH, WILL CONTINUE TO MONITOR.
--- NOTE | 2018-02-05 20:57 | NUR ---
CARDENE GTT DC'D AND LABETALOL GTT STARTED AT 0.5MG/MIN PER DR'S ORDERS, WILL CONTINUE TO MONITOR.
--- NOTE | 2018-02-05 21:40 | NUR ---
C/O CRAMPING ABDOMINAL PAIN 01/02, DILAUDID 1MG IV ADMINISTERED PER JUL. LABETALOL RATE INCREASED TO 1MG/MIN AT THIS TIME. WILL CONTINUE TO MONITOR.
--- NOTE | 2018-02-05 23:33 | NUR ---
RESTING ON RIGHT SIDE WITH EYES CLOSED, RESPIRATIONS EVEN AND UNLBORED. B/P 150/83, HR 93, LABETALOL GTT INFUSING TO LEJ AT 1MG/MIN. CALL LIGHT IN REACH.
[2018-02-06] VITALS (39 sets, daily range): BP systolic 50–281; BP diastolic 37–157
--- NOTE | 2018-02-06 02:00 | NUR ---
LABETALOL GTT DECREASED TO 0.5MG/HR DUE TO B/P 155/77, HR 86.
--- NOTE | 2018-02-06 02:15 | NUR ---
C/O ABDOMINAL PAIN 01/02, DILAUDID 1MG IV ADMINISTERED PER JUL.
--- NOTE | 2018-02-06 04:20 | NUR ---
RESTING IN SEMIFOWLERS WITH EYES CLOSED, RESPIRATIONS EVEN AND UNLABORED. B/P 173/91, HR 85. LABETALOL GTT INFUSING AT 0.5MG/MIN. CALL LIGHT IN REACH.
--- NOTE | 2018-02-06 06:12 | NUR ---
B/P 186/97, HR 88, LABETALOL GTT INCREASED TO 1MG/MIN, INFUSING TO KAILA WITH NO COMPLICATIONS. PT SNORING. CALL LIGHT IN REACH.
--- NOTE | 2018-02-06 07:15 | NUR ---
PT SITTING UP ON EDGE OF BED ROCKING HOLDING STOMACH COMPLAINS OF NAUSEA AND CRAMPING, WILL MEDICATE ORDERED; PT ALSO THEN ASKS FOR A GATORADE, EDUCATED REGARDING APPROPRIATE FLUID INTAKE WITH REGARDS TO HIS KIDNEY FAILURE; OFFERED ALTERNATIVE FLUIDS AND PT AGREES; AM ASSESSMENT COMPLETED; SEE INTERVENTIONS; LUNGS CLEAR; SKIN WARM AND DRY; PT HAS 2 SHUNTS IN LEFT ARM, LAEFT AC SHUNT NON FUNCTIONING PER PT; UPPER ARM SHUNT WITH GOOD BRUIT & THRILL; SKIN DRY BUT INTACT NO BREAKDOWN NOTED; ABD SOFT BS HYPOACTIVE; SAFETY MEASURES REINFORCED; WILL CONTINUE TO MONITOR.
--- NOTE | 2018-02-06 08:16 | NUR ---
PT RESTING IN BED; OCCASIONALLY OOB TO BSC; NO STOOLS AT THIS TIME; AM MEAL AT BEDSIDE WITH NO INTAKE NOTED; PT REQUEST LEAVING IT AT THIS TIME. DOZING BUT REPSONDS TO VERBAL STIMULI.
--- NOTE | 2018-02-06 08:46 | NUR ---
INTO SEE PATIENT, PLAN CARE DISCUSSED, INCLUDING POTENTIAL D/C LATER TODAY TO MAKE DIALYSIS APPT IN AM. ALSO NEED FOR LACTULOSE RELEATED TO FECAL IMPACTION
[2018-02-06] MEDS ORDERED: ADULT ASPIRIN E81 MG PO (08:53)
[2018-02-06] MEDS ORDERED: PHOSLO667 M1 PO (08:53)
[2018-02-06] MEDS ORDERED: CARVEDILOL3.125 MG PO (08:54)
[2018-02-06] MEDS ORDERED: HYDRALAZINE25 MG PO (08:55)
[2018-02-06] MEDS ORDERED: CLONIDINE0.2 MG PO (08:55)
[2018-02-06] MEDS ORDERED: LABETALOL200 MG PO (08:56)
[2018-02-06] MEDS ORDERED: LINZESS145 MCG PO (08:56)
[2018-02-06] MEDS ORDERED: LISINOPRIL40 MG PO (08:57)
[2018-02-06] MEDS ORDERED: METOCLOPRAMIDE10 MG PO (08:58)
[2018-02-06] MEDS ORDERED: NIFEDIPINE60 MG PO (08:59)
[2018-02-06] MEDS ORDERED: NORCO1 TA1 PO (09:01)
[2018-02-06] MEDS ORDERED: ONDANSETRON HCL4 MG PO (09:02)
[2018-02-06] MEDS ORDERED: PANTOPRAZOLE SO40 MG PO (09:02)
[2018-02-06] MEDS ORDERED: PEG PO (09:04)
[2018-02-06] MEDS ORDERED: PRAMIPEXOLE0.25 MG PO (09:05)
[2018-02-06] MEDS ORDERED: PRAVASTATIN10 MG PO (09:05)
--- NOTE | 2018-02-06 09:30 | NUR ---
SCD'S OFF AT THIS TIME PER PT REQUEST, ASKING FOR PAIN MEDICATION EDUCATED REGARDING PAIN MEDICATION SCHEDULE; VERBALIZES UNDERSTANDING.
[2018-02-06 10:05] LABS: HEMATOCRIT 31.7 % (39.0-50.0); HEMOGLOBIN 9.9 g/dl (14.0-18.0); IMMATURE GRANULOCYTES 0.5 % (0.0-5.0); MEAN CELL VOLUME 93.8 fL CALC (80.0-100.0); MEAN CORPUSCULAR HGB 29.3 pG CALC (26.0-32.0); MEAN CORPUSCULAR HGB CONC 31.2 g/L CALC (32.0-36.0); NEUT# 6.84 thou/uL (1.82-7.42); RED BLOOD COUNT 3.38 mill/uL (4.70-6.10)
--- NOTE | 2018-02-06 10:24 | NUR ---
BP REMAINS ELEVATED; RESTARTED HOME MEDICATIONS ORDERED. WILL CONTINUE TO MONITOR.
[2018-02-06 11:00] LABS: CREATININE 9.8 mg/dL (0.7-1.3); POTASSIUM 6.2 mmol/l (3.5-5.1)
--- NOTE | 2018-02-06 11:40 | NUR ---
pt medicated with kaexylate for elevated potassium and medicated for complaints of pain, will hold next dose of lactulose per verbal order continues to have no results form previous medications (i.e. mag citrate, lactulose etc..) will continue to monitor.
--- NOTE | 2018-02-06 12:22 | NUR ---
pt up on bedside commode after visiotr at bedside for short period of time still no po intake of food this shift, monitor fluid intake, will continue to monitor.
--- NOTE | 2018-02-06 12:49 | NUR ---
pt oob to bsc, continent of small loose stool, self aki care provided, will continue to monitor.
--- NOTE | 2018-02-06 13:24 | NUR ---
pt's mother in to visit patient
--- NOTE | 2018-02-06 13:38 | NUR ---
pt up to bsc again continent of small loose polo bm, self aki care provided, will continue to monitor.
--- NOTE | 2018-02-06 13:54 | NUR ---
pt up to bsc again, called in for update.
--- NOTE | 2018-02-06 14:15 | NUR ---
PT OOB TO BSC AGAIN, CONTINENT OF LOOSE STEPHEN STOOL SMALL AMOUNT, SELF DOLORES CARE PROVIDED, CALL RAY WITHIN REACH
--- NOTE | 2018-02-06 16:00 | NUR ---
PT OOB TO BSC INTERMITTENLTY, AT BEDSIDE ASSISTING WITH ADL CARE BATH ETC...LINENS CHANGED BY NETWORK SECURITY ENGINEER, CALL RAY WITHIN REACH
--- NOTE | 2018-02-06 16:58 | NUR ---
PT MEDICATED FOR COMPLAINTS OF PAIN AND NAUSEA, LAB AT BEDSIDE EARLEIR TO DRAW POTASSIUM, AWAITING RESULTS.
--- NOTE | 2018-02-06 17:33 | NUR ---
SET UP ASSIST PROVIDED FOR PM MEAL, SPOUSE REMAINS AT BEDSIDE
--- NOTE | 2018-02-06 18:10 | NUR ---
AWARE OF CONTINUED HYPERTENSION, AND K OF 5.6, NEW ORDERS REC'D
--- NOTE | 2018-02-06 19:10 | NUR ---
sitting on side of bed. no acute distress. pvc monitor shows sinus rhythm. #20 dennis saline lock. cardene began as ordered. sips po fluids taken. admits "i pee very little." fall precautions cont.
--- NOTE | 2018-02-06 21:20 | NUR ---
refused lactalose. admits "i'll poop on myself."
--- NOTE | 2018-02-06 21:20 | NUR ---
dilaudid 1mg ivp given for c/o "7" pain. does not appear in pain.
--- NOTE | 2018-02-06 21:30 | NUR ---
dr porter called. orders rec'd to d/c @ 0600 02-07-18 for dialysis @ 0677.
--- NOTE | 2018-02-06 22:10 | NUR ---
eyes closed. no distress.
[2018-02-07] VITALS (19 sets, daily range): BP systolic 144–172; BP diastolic 70–94
--- NOTE | 2018-02-07 00:01 | NUR ---
awake freq. has asked 3x for more pain med since last administration. no apparent distress.
--- NOTE | 2018-02-07 01:45 | NUR ---
awake. requested pain med. rates pain as "7". doesn't appear in pain. dilaudid 1mg & zofran 4mg ivp given.
--- NOTE | 2018-02-07 02:00 | NUR ---
eyes closed. no distress. cardiac rehabilitation specialist shows sinus rhythm.
--- NOTE | 2018-02-07 04:00 | NUR ---
awake. no acute distress. alarm security or surveillance monitor shows sinus rhythm.
--- NOTE | 2018-02-07 04:15 | NUR ---
[facility] called this advertising copy writer. asked if pt was going to dialysis this a.m. Instructed of dr porter's orders to d/c @ 0600 for 0630 dialysis.
--- NOTE | 2018-02-07 05:00 | NUR ---
sitting on side of bed. no acute distress. applejuice given per request.
--- NOTE | 2018-02-07 05:20 | NUR ---
Discharge instructions given. Patient verbalizes understanding of same. Discharged in stable condition via Wheelchair to Home with spouse. All belongings sent with pt. iv d/c'd with cath intact.
== END 2018-02-07 05:20 | disposition home or self-care (01) | DRG 304 ==
LOC: ED 13:40 → ED-I 17:00 → ED 17:08 → ICU 17:09
PROVIDERS: Family Medicine; Internal Medicine Nephrology; ADMIT Internal Medicine; ATTEND Internal Medicine
DX: I16.1 Hypertensive emergency (principal); N18.6 End stage renal disease; N25.81 Secondary hyperparathyroidism of renal origin; I12.0 Hypertensive chronic kidney disease with stage 5 chronic kidney disease or end stage renal disease; Z99.2 Dependence on renal dialysis; D64.9 Anemia, unspecified; E87.5 Hyperkalemia; E11.22 Type 2 diabetes mellitus with diabetic chronic kidney disease; E11.43 Type 2 diabetes mellitus with diabetic autonomic (poly)neuropathy; K31.84 Gastroparesis; E83.39 Other disorders of phosphorus metabolism; K21.9 Gastro-esophageal reflux disease without esophagitis; K59.09 Other constipation

== ENCOUNTER 2018-03-29 16:01 | Inpatient (IN) | payer MEDICARE ==
[~2018-03-29] VITALS: Ht 172.7 cm; Wt 74.0 kg
[~2018-03-29 16:01] MED LIST changes: +ADULT ASPIRIN E81 MG PO; +CARVEDILOL3.125 MG PO; +LABETALOL200 MG PO; +LINZESS145 MCG PO; +METOCLOPRAMIDE10 MG PO; +NIFEDIPINE60 MG PO; +ONDANSETRON HCL4 MG PO; +PEG PO; +PHOSLO667 M1 PO; +PRAMIPEXOLE0.25 MG PO
--- NOTE | 2018-03-29 16:05 | NUR ---
PT STATES N/V FOR PAST WEEK. PT HAD DIALYSIS LAST YESTERDAY. PT IS AOX4. PT STATES HAVING DIARRHEA. PT STATES VOMITING 30 MINS AGO, VOMITED 10 TIMES IN PAST 24 HRS. PT DENIES ANY C/P,OR SOB.
--- NOTE | 2018-03-29 16:14 | NUR ---
PT TO ROOM AMBLATORY, REFUSING W/C
[2018-03-29 16:26] LABS: HEMATOCRIT 30.2 % (39.0-50.0); HEMOGLOBIN 9.3 g/dl (14.0-18.0); IMMATURE GRANULOCYTES 0.4 % (0.0-5.0); MEAN CELL VOLUME 95.9 fL CALC (80.0-100.0); MEAN CORPUSCULAR HGB 29.5 pG CALC (26.0-32.0); MEAN CORPUSCULAR HGB CONC 30.8 g/L CALC (32.0-36.0); NEUT# 7.99 thou/uL (1.82-7.42); RED BLOOD COUNT 3.15 mill/uL (4.70-6.10); RED CELL DISTRI WIDTH 16.6 % (11.5-15.5)
[2018-03-29 17:06] LABS: ALBUMIN 4.2 g/dL (3.2-5.0); BILIRUBIN, TOTAL 0.6 mg/dL (0.0-1.4); TOTAL PROTEIN 6.9 g/dL (6.3-8.2)
[2018-03-29 17:19] LABS: CREATININE 7.8 mg/dL (0.7-1.3); POTASSIUM 4.2 mmol/l (3.5-5.1)
--- NOTE | 2018-03-29 17:30 | NUR ---
PT RESTING ON STRECHER, EASILY AROUSEABLE. SISTER AT BEDSIDE.
--- NOTE | 2018-03-29 17:59 | NUR ---
SBAR PRINTED TO FLOOR
--- NOTE | 2018-03-29 18:23 | NUR ---
REPORT CALLED TO ICU- CAN RN ACCEPTED PT
--- NOTE | 2018-03-29 18:42 | NUR ---
Admission Note Report Given to: ERIC Transported by: Wheelchair X Stretcher Transported with: X Nurse Transporter X Patent IV O2 X [employer] Manager TRANSPORTED TO ICU 7 WITHOUT INCIDENT
--- NOTE | 2018-03-29 18:45 | NUR ---
PT ARRIVES TO ICU-7 FROM ER, ALERT AND ORIENTED X 3. PT AMBULATORY WITH STANDBY ASSIST TO BED. CARDENE SET UP AT 5 MG/HR. NO VOMITING OR REPORT OF ABDOMINAL PAIN UPON ARRIVAL. REPORT TO CLAYTON AT SHIFT CHANGE.
[2018-03-29 19:00] VITALS: BP 190/97
--- NOTE | 2018-03-29 19:30 | NUR ---
RESTING IN BED WITH EYES CLOSED, RESPIRATIONS EVEN AND UNLABORED ON RA. B/P 169/71, HR 96. CARDENE GTT INFUSING TO LEJ AT 5MG/HR. WILL CONTINUE TO MONITOR.
[2018-03-29 20:00] VITALS: BP 211/91
--- NOTE | 2018-03-29 20:05 | NUR ---
PT SITTING ON SIDE OF BED CALLING OUT FOR ASSISTANCE, C/O NAUSEA, ZOFRAN 4MG IV ADMINISTERED, WITH PROTONIX IV PER DR'S ORDERS. LORTA 5/325MG PO ALSO PROVIDED FOR C/O ABDOMINAL PAIN 01/02.
--- NOTE | 2018-03-29 20:15 | NUR ---
FREDDYENE GTT INCREASED TO 10MG/HR DUE TO B/P 200/94, HR 104. WILL CONTINUE TO MONITOR.
[2018-03-29 21:00] VITALS: BP 168/83
[2018-03-29 22:00] VITALS: BP 159/68
--- NOTE | 2018-03-29 22:41 | NUR ---
PT C/O ABDOMINAL PAIN 03/04, NOTIFIED AND NEW ORDER RECEIVED FOR DILAUDID 4MG IV Q6H PRN FOR PAIN. MEDICATED AT THIS TIME. WILL CONTINUE TO MONITOR.
[2018-03-29 23:00] VITALS: BP 156/73
[2018-03-30] VITALS (17 sets, daily range): BP systolic 140–185; BP diastolic 69–96
--- NOTE | 2018-03-30 | NUR ---
PT C/O ABDOMIMAL PAIN 11/02, REQUESTING PAIN MEDICATION, DISCUSSED WITH PT TIMES DILAUDID AND LORTAB ARE AVAILABLE TO HIM, VOICES UNDERSTANDING, BACK MASSAGE PROVIDED. CALL LIGHT IN REACH.
--- NOTE | 2018-03-30 03:08 | NUR ---
LORTAB 5/325 PO PROVIDED FOR C/O ABDOMINAL PAIN AT THIS TIME. PT IS STANDING ON SIDE OF BED, USING URINAL, VOIDING LESS 25CC OF CLEAR YELLOW URINE. BATH OFFERED AND REFUSED AT THIS TIME.
--- NOTE | 2018-03-30 05:01 | NUR ---
CALLING OUT FOR NURSE, C/O ABDOMINAL PAIN 03/04, DILAUDID 4MG IV ADMINISTERED. CARDENE GTT INFUSING TO LEFT EJ AT 10MG/HR, B/P 142/74, HR 88. AT 0519 C/O NAUSEA, ZOFRAN 4MG IV ADMINISTERED.
--- NOTE | 2018-03-30 05:59 | NUR ---
PT STANDING ON SIDE OF BED SCRATCHING ARMS AND LEGS, WHEN ASKED WHAT IS WRONG PT CLEARS HIS THROAT AND PACES FROM SIDE TO SIDE. CARDENE GTT CONTINUE TO INFUSE WITH NO COMPLICAITONS. B/P 153/73, HEART RATE 103. THEN SITTING ON SIDE OF BED.
--- NOTE | 2018-03-30 08:25 | NUR ---
PT RESTS IN THE BED IN NO ACUTE DISTRESS. HE DOES NOT ALWAYS ANSWER QUESTIONS ASKED. IV SITE TO LEFT EXTERNAL JUGULAR WAS REDRESSED THIS MORNING, INFUSES CARDENE WITHOUT ISSUE. BP 150/75.
--- NOTE | 2018-03-30 10:29 | NUR ---
DR WATSON IN TO SEE PT, STARTED ON ORAL MEDS FOR HTN. CARDENE DRIP WILL BE TITRATED BASED ON DESCENDING BP READINGS.
--- NOTE | 2018-03-30 10:56 | NUR ---
151/69, DOWN FROM 10 MG/HR TO 7.5 MG/HR.
[2018-03-30 11:01] LABS: HEMATOCRIT 31.2 % (39.0-50.0); HEMOGLOBIN 9.6 g/dl (14.0-18.0); IMMATURE GRANULOCYTES 0.3 % (0.0-5.0); MEAN CELL VOLUME 95.4 fL CALC (80.0-100.0); MEAN CORPUSCULAR HGB 29.4 pG CALC (26.0-32.0); MEAN CORPUSCULAR HGB CONC 30.8 g/L CALC (32.0-36.0); NEUT# 7.55 thou/uL (1.82-7.42); RED BLOOD COUNT 3.27 mill/uL (4.70-6.10); RED CELL DISTRI WIDTH 16.8 % (11.5-15.5)
--- NOTE | 2018-03-30 11:06 | NUR ---
156/75, DOWN FROM 7.5 MG/HR TO 5 MG/HR.
[2018-03-30 11:16] LABS: POTASSIUM 4.6 mmol/l (3.5-5.1)
[2018-03-30 11:30] LABS: CREATININE 9.6 mg/dL (0.7-1.3)
--- NOTE | 2018-03-30 11:30 | NUR ---
154/78, 5 MG/HR DOWN TO 2.5 MG/HR.
--- NOTE | 2018-03-30 11:42 | NUR ---
PT ASKING FOR ADVANCE IN DIET, NEW ORDER PLACED FOR DIABETIC DIET. PT WEANED DOWN TO 2.5 MG/HR ON CARDENE, HOPING TO WEAN OFF PO MEDS DO THEIR WORK. PT HAS BEEN ON PHONE TRYING TO CALL HIS , STATES THAT HE FEELS GOOD ENOUGH TO GO HOME NOW.
--- NOTE | 2018-03-30 12:36 | NUR ---
BP 140/74, CARDENE DRIP TURNED OFF AT THIS POINT. PT RESTING IN THE BED WITH EYES CLOSED.
[2018-03-30] MEDS ORDERED: NORMODYNE/100 MG/TA1 PO (16:08)
--- NOTE | 2018-03-30 16:08 | NUR ---
DR WATSON HAS RETURNED TO ICU TO EVALUATE PT'S STATUS, CONSIDERS HIM READY FOR DISPOSITION. IV REMOVED FROM LEFT EJ, PT DRESSING NOW.
[2018-03-30] MEDS ORDERED: LISINOPRIL20 M1 PO (16:09)
[2018-03-30] MEDS ORDERED: CLONIDINE0.2 MG PO (16:24)
--- NOTE | 2018-03-30 16:35 | NUR ---
PT VERBALIZES UNDERSTANDING OF DC INSTRUCTIONS, TAKEN BY WHEELCHAIR TO VEHICLE WAITING AT FRONT ENTRANCE.
== END 2018-03-30 16:30 | disposition home or self-care (01) | DRG 304 ==
LOC: ED 16:01 → ED-I 17:47 → ED 18:01 → ICU 18:01
PROVIDERS: Family Medicine; ADMIT Internal Medicine Nephrology; ATTEND Internal Medicine Nephrology
DX: I16.1 Hypertensive emergency (principal); N18.6 End stage renal disease; K86.1 Other chronic pancreatitis; N25.81 Secondary hyperparathyroidism of renal origin; I12.0 Hypertensive chronic kidney disease with stage 5 chronic kidney disease or end stage renal disease; E11.22 Type 2 diabetes mellitus with diabetic chronic kidney disease; E11.43 Type 2 diabetes mellitus with diabetic autonomic (poly)neuropathy; K31.84 Gastroparesis; D63.1 Anemia in chronic kidney disease; E83.39 Other disorders of phosphorus metabolism; E11.51 Type 2 diabetes mellitus with diabetic peripheral angiopathy without gangrene; K59.00 Constipation, unspecified; Z99.2 Dependence on renal dialysis
CPT/HCPCS: S0164

== ENCOUNTER 2018-10-10 23:37 | Emergency (ER) | payer MEDICARE ==
[~2018-10-10] VITALS: Ht 172.7 cm; Wt 75.8 kg
[~2018-10-10 23:37] MED LIST changes: +LISINOPRIL20 M1 PO; +NORMODYNE/100 MG/TA1 PO
[2018-10-11 01:17] LABS: HEMATOCRIT 40.7 % (39.0-50.0); HEMOGLOBIN 12.6 g/dl (14.0-18.0); IMMATURE GRANULOCYTES 0.5 % (0.0-5.0); MEAN CELL VOLUME 88.7 fL CALC (80.0-100.0); MEAN CORPUSCULAR HGB 27.5 pG CALC (26.0-32.0); NEUT# 9.04 thou/uL (1.82-7.42); RED BLOOD COUNT 4.59 mill/uL (4.70-6.10); RED CELL DISTRI WIDTH 19.9 % (11.5-15.5)
[2018-10-11 01:54] LABS: ALBUMIN 4.7 g/dL (3.2-5.0); POTASSIUM 4.7 mmol/l (3.5-5.1); TOTAL PROTEIN 7.6 g/dL (6.3-8.2)
[2018-10-11 01:57] LABS: CREATININE 7.7 mg/dL (0.7-1.3)
[2018-10-11 04:45] VITALS: BP 190/90
== END 2018-10-11 04:00 | disposition left against medical advice (07) ==
LOC: ED 23:37
PROVIDERS: Emergency Medicine
DX: I16.1 Hypertensive emergency (principal); R10.13 Epigastric pain; I12.0 Hypertensive chronic kidney disease with stage 5 chronic kidney disease or end stage renal disease; E11.22 Type 2 diabetes mellitus with diabetic chronic kidney disease; N18.6 End stage renal disease; E11.43 Type 2 diabetes mellitus with diabetic autonomic (poly)neuropathy; K31.84 Gastroparesis; Z99.2 Dependence on renal dialysis; Z91.19 Patient's noncompliance with other medical treatment and regimen
CPT/HCPCS: S0164

== ENCOUNTER 2019-01-03 21:29 | Emergency (ER) | payer MEDICARE ==
[~2019-01-03] VITALS: Ht 172.7 cm; Wt 75.0 kg
[2019-01-03 22:02] LABS: HEMATOCRIT 39.5 % (39.0-50.0); HEMOGLOBIN 12.5 g/dl (14.0-18.0); IMMATURE GRANULOCYTES 0.3 % (0.0-5.0); MEAN CELL VOLUME 87.8 fL CALC (80.0-100.0); MEAN CORPUSCULAR HGB 27.8 pG CALC (26.0-32.0); MEAN CORPUSCULAR HGB CONC 31.6 g/L CALC (32.0-36.0); NEUT# 9.15 thou/uL (1.82-7.42); RED BLOOD COUNT 4.5 mill/uL (4.70-6.10); RED CELL DISTRI WIDTH 20.5 % (11.5-15.5)
[2019-01-03 22:13] LABS: ALBUMIN 5.4 g/dL (3.2-5.0); BILIRUBIN, TOTAL 1.1 mg/dL (0.0-1.4)
[2019-01-03 22:15] LABS: POTASSIUM 5.9 mmol/l (3.5-5.1); TOTAL PROTEIN 9.2 g/dL (6.3-8.2)
[2019-01-03 22:16] LABS: CREATININE 10.3 mg/dL (0.7-1.3)
[2019-01-03 23:48] VITALS: BP 203/95
== END 2019-01-03 23:34 | disposition left against medical advice (07) ==
LOC: ED 21:29
PROVIDERS: Emergency Medicine
DX: I16.1 Hypertensive emergency (principal); R10.11 Right upper quadrant pain; R10.12 Left upper quadrant pain; I12.0 Hypertensive chronic kidney disease with stage 5 chronic kidney disease or end stage renal disease; E11.22 Type 2 diabetes mellitus with diabetic chronic kidney disease; N18.6 End stage renal disease; E11.43 Type 2 diabetes mellitus with diabetic autonomic (poly)neuropathy; K31.84 Gastroparesis; Z91.19 Patient's noncompliance with other medical treatment and regimen; Z99.2 Dependence on renal dialysis

== ENCOUNTER 2019-01-23 19:01 | Emergency (ER) | payer MEDICARE ==
[~2019-01-23] VITALS: Ht 172.7 cm; Wt 75.0 kg
[2019-01-23 20:59] LABS: HEMATOCRIT 39.9 % (39.0-50.0); HEMOGLOBIN 12.6 g/dl (14.0-18.0); IMMATURE GRANULOCYTES 0.1 % (0.0-5.0); MEAN CELL VOLUME 88.3 fL CALC (80.0-100.0); MEAN CORPUSCULAR HGB 27.9 pG CALC (26.0-32.0); MEAN CORPUSCULAR HGB CONC 31.6 g/L CALC (32.0-36.0); NEUT# 5.93 thou/uL (1.82-7.42); RED BLOOD COUNT 4.52 mill/uL (4.70-6.10); RED CELL DISTRI WIDTH 19.9 % (11.5-15.5)
[2019-01-23 21:10] LABS: ALBUMIN 5.2 g/dL (3.2-5.0); POTASSIUM 4.9 mmol/l (3.5-5.1); TOTAL PROTEIN 8.9 g/dL (6.3-8.2)
[2019-01-23 21:34] LABS: CREATININE 7.1 mg/dL (0.7-1.3)
[2019-01-24] MEDS ORDERED: PHENERGAN25 MG RE (00:17)
[2019-01-24 00:30] VITALS: BP 191/80
[2019-01-24] MEDS ORDERED: CATAPRES0.1 MG PO (00:45)
[2019-01-24] MEDS ORDERED: TRANDATE300 MG PO (00:45)
== END 2019-01-24 00:30 | disposition home or self-care (01) ==
LOC: ED 19:01
PROVIDERS: Family Medicine
DX: R10.13 Epigastric pain (principal); G89.29 Other chronic pain; R11.2 Nausea with vomiting, unspecified; K31.84 Gastroparesis; R50.9 Fever, unspecified; I12.0 Hypertensive chronic kidney disease with stage 5 chronic kidney disease or end stage renal disease; N18.6 End stage renal disease; Z99.2 Dependence on renal dialysis; F17.200 Nicotine dependence, unspecified, uncomplicated

== ENCOUNTER 2019-02-26 22:10 | Emergency (ER) | payer MEDICARE ==
[~2019-02-26] VITALS: Ht 172.7 cm; Wt 85.0 kg
[~2019-02-26 22:10] MED LIST changes: +CATAPRES0.1 MG PO; +PHENERGAN25 MG RE; +TRANDATE300 MG PO
[2019-02-26 23:35] LABS: HEMATOCRIT 37.8 % (39.0-50.0); HEMOGLOBIN 11.9 g/dl (14.0-18.0); IMMATURE GRANULOCYTES 0.4 % (0.0-5.0); MEAN CELL VOLUME 87.7 fL CALC (80.0-100.0); MEAN CORPUSCULAR HGB 27.6 pG CALC (26.0-32.0); MEAN CORPUSCULAR HGB CONC 31.5 g/L CALC (32.0-36.0); NEUT# 7.06 thou/uL (1.82-7.42); RED BLOOD COUNT 4.31 mill/uL (4.70-6.10); RED CELL DISTRI WIDTH 17.2 % (11.5-15.5)
[2019-02-26 23:42] LABS: ALBUMIN 4.8 g/dL (3.2-5.0); BILIRUBIN, TOTAL 0.7 mg/dL (0.0-1.4); POTASSIUM 5.1 mmol/l (3.5-5.1)
[2019-02-26 23:50] LABS: CREATININE 11.7 mg/dL (0.7-1.3)
[2019-02-27 02:00] VITALS: BP 257/126
== END 2019-02-27 02:49 | disposition left against medical advice (07) ==
LOC: ED 22:10
PROVIDERS: Emergency Medicine
DX: R10.12 Left upper quadrant pain (principal); K29.70 Gastritis, unspecified, without bleeding; E11.22 Type 2 diabetes mellitus with diabetic chronic kidney disease; I12.0 Hypertensive chronic kidney disease with stage 5 chronic kidney disease or end stage renal disease; N18.6 End stage renal disease; Z99.2 Dependence on renal dialysis; Z91.19 Patient's noncompliance with other medical treatment and regimen
CPT/HCPCS: S0164